=== PATIENT | female | born 1985 | race American Indian/Alaskan Native ===

== ENCOUNTER → 2021-01-22 09:22 | Outpatient (CLI) | payer OTHER, SELFPAY ==
--- NOTE | 2021-01-22 09:24 | DI.US.S_ITS ---
PROCEDURE: US ABDOMEN COMPLETE INDICATIONS: RUQ PAIN TECHNIQUE: Real-time scanning was performed of the abdominal and retroperitoneal organs, with image documentation. COMPARISON: None. FINDINGS: Liver: Liver is normal in size and homogeneous in echotexture. Gallbladder: There are gallstones. Gallbladder wall is mildly thickened measuring 3.8 mm. No sonographic Swain sign. Biliary ducts: Intrahepatic bile ducts are non-dilated. Extrahepatic bile duct caliber measures 4.3 mm. Normal is 6-7 mm or less in diameter, or 10 mm or less post-cholecystectomy. Pancreas: Visualized portions of the pancreas are sonographically normal. Spleen: Spleen is normal in size and homogeneous in echotexture. Kidneys: Kidneys are normal in size and echotexture. Right kidney measures 10.1 cm long; left kidney measures 11.1 cm long. No hydronephrosis or nephrolithiasis. No solid masses. Aorta: Visualized aorta is normal in caliber at less than 3 cm. Iliacs: Proximal common iliac arteries are normal in caliber at less than 2.5 cm. IVC: Intrahepatic inferior vena cava is patent. Miscellaneous: No free abdominal fluid. IMPRESSION: 1. Cholelithiasis. There is mild gallbladder wall thickening. No pericholecystic fluid collection or sonographic Swain sign. Recommend clinical correlation for early cholecystitis. If clinically indicated, HIDA scan may be helpful. Dictated by: Quyen Quach M.D. on 01/22/2021 at 10:58 Approved by: Quyen Quach M.D. on 01/22/2021 at 10:59
== END ==
PROVIDERS: Family Provider Family Medicine; PCP Family Medicine; Referring Provider Family Medicine; Visit Provider Family Medicine
DX: R10.11 Right upper quadrant pain (principal); K80.20 Calculus of gallbladder without cholecystitis without obstruction
CPT/HCPCS: 76700

== ENCOUNTER → 2021-03-02 15:16 | Outpatient (CLI) | payer OTHER, SELFPAY ==
[2021-03-02 15:26] LABS: COVID19 -Nasal RAPID Negative (Negative)
== END ==
PROVIDERS: Family Provider Family Medicine; PCP Family Medicine; Visit Provider Specialist
DX: Z20.822 Contact with and (suspected) exposure to COVID-19 (principal)
CPT/HCPCS: 87635; C9803

== ENCOUNTER 2021-03-04 12:35 | Day surgery (SDC) | payer OTHER, SELFPAY ==
[2021-02-27 12:03] VITALS: BMI 29.7
[2021-03-04] VITALS (13 sets, daily range): BP systolic 92–140; BP diastolic 57–90; PULSE 62–93; RESP 12–21; TEMP 36.1–37.2; O2SAT 97–100; BMI 29.5
--- NOTE | 2021-03-04 | PATH_ITS ---
[facility] Accession Number: [id number] . 01 Material submitted: . gallbladder - GALLBLADDER . 01 Clinical history: . LAP MELANY . 02 Diagnosis: Gallbladder, Cholecystectomy: Acute and chronic cholecystitis, cholesterolosis, and cholelithiasis. V 03/06/2021 1421 Local . 02 Electronically signed: . Katelyn Mccoy MD, Pathologist NPI- [id number] . 01 Gross description: . The specimen is received in formalin, labeled gallbladder and consists of a 9.0 x 3.0 x 2.0 cm previously disrupted gallbladder with a 0.3 cm in diameter cystic duct. The serosa is simon-pink and wrinkled. Opening reveals minimal green viscous bile with multiple black-brown multifaceted choleliths and cholelith fragments measuring 5.0 x 3.0 x 2.5 cm in aggregate and ranging from 0.1-0.7 cm. The mucosa is simon-green and velvety to trabeculated, and the wall thickness measures 0.2 cm. Escalator Attendant sections are submitted, to include the en face cystic duct margin, in cassette A1. ([id number]) /MRV 03/05/2021 0953 Local . 02 Pathologist provided ICD-10: K81.2, K80.60 . 02 CPT . 901850 Performed at: 01 [facility] Cytology [address] [facility], [place], [place] [id number] MD Darian Larkin MD Phone: [phone] Performed at: 02 [facility] [place] [address] [place], [place] [id number] MD Christie Bustillo MD Phone: [phone]
[2021-03-04] MEDS: LACTATED RINGERS 1,000 ML 42 ML IV ×2 (13:09→16:46)
--- NOTE | 2021-03-04 14:53 | PM.PREOP ---
Pre-operative Note COVID-19 COVID-19 status: Negative Result date/Date tested (Pos, Neg/Pending): 03/03/21 Interval Note History & Physical reviewed/Exam performed by Physician: Yes Changes to H&P: No
--- NOTE | 2021-03-04 15:12 | SUR.OPER ---
Supine on padded OR bed, head on pillow, safety belt at thigh, left arm padded and tucked at side. Right arm secured on padded arm board <90 degrees abduction. Legs uncrossed. Padded footboard in place. Tape over blanket to secure lower legs.
[2021-03-04] MEDS: CEFAZOLIN 1 GM VIAL 2 GM IV (15:28)
[2021-03-04] MEDS: BUPIVACAINE 0.5% (PF) VIAL 30 ML INJ (15:42)
--- NOTE | 2021-03-04 17:02 | PM.OP.1 ---
Operative Date/Time/Diagnoses Date of procedure: 03/04/21 Time of procedure: 17:03 Pre-op diagnosis: Cholelithiasis with cholecystitis. Post-op diagnosis: same (Chronic) Procedure & Clinicians Procedure: Laparoscopic cholecystectomy Same procedure as scheduled: Yes Indications: Symptomatic gallbladder disease Surgeon: Sergio Martinez Click Yes if Unassisted: Yes Anesthesia Type: General Operative Notes Findings: Thickened gallbladder containing stones 1 of which was quite large. Closure Type: primary Specimen(s): other (Gallbladder and contents) Prosthetic devices, grafts, tissues, transplants, or devices: None Estimated Blood Loss (mL): 25 Blood products transfused: none Procedure in detail: The patient was placed supine on the operating room table and underwent general endotracheal anesthesia. The patient was prepped and draped in the usual fashion. Local anesthetic was infiltrated near the umbilicus and curvilinear incision made and carried down through fascia into the peritoneal cavity. Stay sutures of 0 Vicryl were placed in the fascia. A 12 mm port was placed. The abdomen was insufflated. The patient was repositioned. Local anesthetic was infiltrated in 3 areas under the right costal margin and 3 small incisions made followed by placing 3 5 mm ports under direct laparoscopic camera vision internally. The gallbladder was grasped and elevated. Dissection was begun near its end. A ductal structure singular in nature going directly the gallbladder was from surrounding structures. Four clips were placed across it was divided leaving 3 in the patient. There was a small side branch of an artery that was bleeding that had additional clip applied. I was satisfied that the clips went all the way across the cystic duct. I dissected further down along the cystic duct and placed a loop proximal to the clips. I then turned my attention to dissecting vascular structures. There were multiple small arteries in the area of his dissecting and apply clips to the anus. Within divided. The gallbladder was then dissected from its bed in liver. It was detached and placed in a bag and removed through the umbilical port. The re-examined the right upper quadrant irrigated suctioned free of fluid. There was no bleeding and no drainage of bile. The ports were all removed.. the port sites were all irrigated. The stay sutures at the umbilicus were elevated. A 2 0 PDS suture was placed between them. The Vicryl and PDS sutures were then tied. The skin in all areas was closed with interrupted 4 0 Vicryl subcuticular stitches. Steri-Strips and Mastisol were applied. Band-Aids were placed and the patient was awakened, extubated and taken to the recovery area in good condition. The gallbladder was examined and it was clear that the duct divided was the cystic duct as there was no other ducts entering the area and a single opening as I divided right at the junction with the gallbladder. Complications: none Post-operative Condition: stable Disposition: PACU
[2021-03-04] MEDS: OXYCODONE IR 5 MG TABLET PO ×2 (17:41→18:13)
[2021-03-04] MEDS: ACETAMINOPHEN 325 MG TABLET 650 MG PO (17:42)
[2021-03-04] MEDS: ONDANSETRON 4 MG/2 ML INJ IV (17:45)
[2021-03-04] MEDS: fentaNYL 100 MCG/2 ML INJ IV (17:53)
--- NOTE | 2021-03-04 17:59 | SUR.PHASEI ---
medicated for pain and nausea, (no emesis); currently resting with eyes closed, resp even and regular, skin warm and dry. Warm blankets given. Had applesauce and water prior to PO med.
--- NOTE | 2021-03-04 18:02 | SUR.PHASEI ---
Pain improved, states I just want to go home and go to bed. Explained need to monitor her longer in PACU, understood. Abdomen remains soft (was soft on admit to PACU)
--- NOTE | 2021-03-04 18:51 | SUR.PHASEII ---
1840 DC'd home per patient request after 200 ml emesis. No solids (pills) noted in the emesis. States that she feels better. Declined IM ordered by Dr. Cardoza for nausea. States that she wants to go home and sleep. Emesis bags given. Bandaids CDI, belly soft. Otherwise stable.
--- NOTE | 2021-03-04 18:57 | SUR.PHASEII ---
1840 Reinforced instructions with Vincent, explained pain med, told him that I had written down the times that she was medicated and indicators for calling the doctor. Reviewed dietary recommendations and to advance diet slowly with small amounts of liquids to start out. No further questions.
== END 2021-03-04 18:40 | disposition home or self-care (01) ==
PROVIDERS: Family Provider Family Medicine; PCP Family Medicine; Referring Provider Specialist; Visit Provider Specialist
PROC: 0FT44ZZ Resection of Gallbladder, Percutaneous Endoscopic Approach (ICD-10-PCS; CPT 47562; principal; 2021-03-04 13:45)
DX: K80.10 Calculus of gallbladder with chronic cholecystitis without obstruction (principal); F41.9 Anxiety disorder, unspecified; F32.9 Major depressive disorder, single episode, unspecified
CPT/HCPCS: 47562; 81025; J0690; J1100; J2250; J2405; J3010

== ENCOUNTER → 2021-09-08 08:29 | Outpatient (CLI) | payer OTHER, SELFPAY | PROVIDERS: Family Provider Family Medicine; PCP Family Medicine; Visit Provider Physician Assistant | DX: N39.0 Urinary tract infection, site not specified (principal) | CPT/HCPCS: 87077; 87086; 87147 ==

== ENCOUNTER → 2022-05-11 10:07 | Outpatient (CLI) | payer OTHER, SELFPAY ==
--- NOTE | 2022-05-11 10:08 | DI.RAD.S_ITS ---
PROCEDURE: XR ANKLE LT MIN 3V INDICATIONS: ankle inversion, lateral malleolus tender TECHNIQUE: 3 views of the ankle were acquired. COMPARISON: None. FINDINGS: Bones: No fractures or dislocations. Ankle mortise is normally aligned. No suspicious bony lesions. Soft tissues: No tibiotalar joint effusion. Achilles tendon appears normal. IMPRESSION: No visualized acute fracture or dislocation. However, if clinical concern and/or pain persist, short interval imaging followup in 7-10 days is recommended, as occult injury cannot be definitively excluded. Dictated by: Keren Albright M.D. on 05/11/2022 at 10:38 Approved by: Keren Albright M.D. on 05/11/2022 at 10:39
--- NOTE | 2022-05-11 10:08 | DI.RAD.S_ITS ---
PROCEDURE: XR FOOT LT MIN 3V INDICATIONS: ankle inversion, lateral malleolus tender TECHNIQUE: 3 views of the foot were acquired. COMPARISON: None. FINDINGS: Bones: No fractures or dislocations. No suspicious bony lesions. Soft tissues: No tibiotalar joint effusion. Achilles tendon appears normal. IMPRESSION: No visualized acute fracture or dislocation. However, if clinical concern and/or pain persist, short interval imaging followup in 7-10 days is recommended, as occult injury cannot be definitively excluded. Dictated by: Keren Albright M.D. on 05/11/2022 at 10:51 Approved by: Keren Albright M.D. on 05/11/2022 at 10:53
== END ==
PROVIDERS: Family Provider Family Medicine; PCP Family Medicine; Referring Provider Student in an Organized Health Care Education/Training Program; Visit Provider Student in an Organized Health Care Education/Training Program
DX: M25.572 Pain in left ankle and joints of left foot (principal); M25.472 Effusion, left ankle; M79.672 Pain in left foot
CPT/HCPCS: 73610; 73630

== ENCOUNTER → 2023-12-27 14:37 | Outpatient (CLI) | payer OTHER, SELFPAY ==
[2023-12-27 15:28] LABS: Erythrocyte Sedimentation Rate 10 MM/HR (0-20)
[2023-12-27 17:00] LABS: C-Reactive Protein Quant 0.7 mg/dL (<1.0); Rheumatoid Factor < 8.6 IU/mL (<12.0)
== END ==
PROVIDERS: Family Provider Family Medicine; PCP Family Medicine; Referring Provider Physician Assistant; Visit Provider Physician Assistant
DX: H20.9 Unspecified iridocyclitis (principal); Z82.61 Family history of arthritis
CPT/HCPCS: 36415; 81374; 85651; 86038; 86140; 86200; 86430; 86592

== ENCOUNTER → 2023-12-27 15:25 | Outpatient (CLI) | payer OTHER, SELFPAY ==
--- NOTE | 2023-12-27 15:27 | DI.RAD.S_ITS ---
PROCEDURE: XR CHEST 2V INDICATIONS: Recurrent Uveitis Rule out sarcoidosis TECHNIQUE: 2 views of the chest were acquired. COMPARISON: None. FINDINGS: Surgical changes and devices: None. Lungs and pleura: Lungs are clear. No pleural effusions or pneumothorax. Mediastinum: Mediastinal contours are normal. Heart size is normal. Bones and chest wall: No suspicious bony abnormalities. Soft tissues appear unremarkable. IMPRESSION: No acute cardiopulmonary abnormality is seen. Approved by: Lux Rod M.D. on 12/27/2023 at 17:27
== END ==
PROVIDERS: Family Provider Family Medicine; PCP Family Medicine; Referring Provider Physician Assistant; Visit Provider Physician Assistant
DX: H20.9 Unspecified iridocyclitis (principal); Z82.61 Family history of arthritis
CPT/HCPCS: 36415; 71046; 81374; 85651; 86038; 86140; 86200; 86430; 86592

== ENCOUNTER → 2024-01-25 09:20 | Outpatient (CLI) | payer OTHER, SELFPAY ==
--- NOTE | 2024-01-25 09:21 | DI.RAD.S_ITS ---
PROCEDURE: XR THORACIC SPINE 3V INDICATIONS: neck pain TECHNIQUE: 3 views of the thoracic spine were acquired. COMPARISON: None. FINDINGS: Bones: No fractures or dislocations. No suspicious bony lesions. 12 pairs of ribs are noted, and appear intact where visualized. Mild multilevel degenerative changes of thoracic spine. Soft tissues: No paravertebral stripe thickening. IMPRESSION: Multilevel degenerative changes of thoracic spine. No acute osseous abnormalities. Dictated by: Jose Hwang M.D. on 01/25/2024 at 15:13 Approved by: Jose Hwang M.D. on 01/25/2024 at 15:14
--- NOTE | 2024-01-25 09:21 | DI.RAD.S_ITS ---
PROCEDURE: XR CERVICAL SPINE 2V OR 3V INDICATIONS: fam hx RA, hx of uveitis, back pain TECHNIQUE: 3 view(s) of the cervical spine were acquired. COMPARISON: None. FINDINGS: Bones: No fractures or dislocations to the C7 level. The lateral masses of C1 appear intact on the odontoid view. No suspicious bony lesions. Mild multilevel degenerative changes of the cervical spine. Soft tissues: No prevertebral soft tissue swelling. IMPRESSION: Mild degenerative changes of the cervical spine. Dictated by: Jose Hwang M.D. on 01/25/2024 at 15:12 Approved by: Jose Hwang M.D. on 01/25/2024 at 15:13
--- NOTE | 2024-01-25 09:21 | DI.RAD.S_ITS ---
PROCEDURE: XR SACRUM COCCYX MIN 2V INDICATIONS: neck pain TECHNIQUE: 3 views of the sacrum and coccyx acquired. COMPARISON: None. FINDINGS: Bones: No acute fractures or dislocations. No suspicious bony lesions. Soft tissues: Visualized bowel gas pattern is normal. No suspicious soft tissue densities. Intrauterine device is seen projecting over the pelvis. IMPRESSION: No acute osseous abnormality. If symptoms persist or if there is continued clinical concern, cross-sectional imaging such as MRI or CT may be helpful for further evaluation. Approved by: Graham Mckeon M.D. on 01/25/2024 at 13:36
--- NOTE | 2024-01-25 09:21 | DI.RAD.S_ITS ---
PROCEDURE: XR LUMBAR SPINE 2-3V INDICATIONS: neck pain TECHNIQUE: 3 views of the lumbar spine were acquired. COMPARISON: None. FINDINGS: Bones: 5 [id number] vertebrae are present. There is normal bony alignment. No vertebral body compression fractures. No suspicious bony lesions. Mild intervertebral disc height loss of the lower lumbar spine. Mild facet arthropathy of the lower lumbar spine. Soft tissues: Overlying bowel gas pattern is normal. No suspicious soft tissue calcifications. IMPRESSION: Mild degenerative changes of the lower lumbar spine. No acute osseous abnormalities. Dictated by: Jose Hwang M.D. on 01/25/2024 at 15:02 Approved by: Jose Hwang M.D. on 01/25/2024 at 15:03
== END ==
PROVIDERS: Family Provider Family Medicine; PCP Family Medicine; Referring Provider Family Medicine; Visit Provider Family Medicine
DX: M47.812 Spondylosis without myelopathy or radiculopathy, cervical region (principal); M47.814 Spondylosis without myelopathy or radiculopathy, thoracic region; M47.816 Spondylosis without myelopathy or radiculopathy, lumbar region; H20.9 Unspecified iridocyclitis; Z82.61 Family history of arthritis; Z15.89 Genetic susceptibility to other disease
CPT/HCPCS: 72040; 72072; 72100; 72220

== ENCOUNTER → 2024-05-04 08:27 | Outpatient (CLI) | payer OTHER, SELFPAY ==
[2024-05-05 07:40] LABS: RPR Screen Non Reactive (Non Reactive)
[2024-05-07 16:36] LABS: Angiotensin Converting Enzyme 20 U/L (14-82)
[2024-05-10 18:38] LABS: HLA B27 Positive (.)
== END ==
PROVIDERS: Family Provider Family Medicine; PCP Family Medicine; Referring Provider Ophthalmology; Visit Provider Ophthalmology
DX: H20.12 Chronic iridocyclitis, left eye (principal)
CPT/HCPCS: 36415; 81374; 82164; 86592

== ENCOUNTER → 2024-08-08 09:33 | Outpatient (CLI) | payer OTHER, SELFPAY ==
[2024-08-09 05:36] LABS: RPR Screen Non Reactive (Non Reactive)
[2024-08-12 15:07] LABS: Treponema pallidum Antibodies Non Reactive (Non Reactive)
== END ==
PROVIDERS: Family Provider Family Medicine; PCP Family Medicine; Referring Provider Ophthalmology; Visit Provider Ophthalmology
DX: H20.12 Chronic iridocyclitis, left eye (principal)
CPT/HCPCS: 36415; 86592; 86780